=== PATIENT | female | born 1945 | race Caucasian/White ===

== ENCOUNTER 2025-05-01 06:56 | Day surgery (SDC) | payer OTHER ==
[~2025-05-01] VITALS: Ht 152.4 cm; Wt 59.0 kg
[2025-05-01] MEDS ORDERED: LIDOCAINE 2% 11 ML JELLY TP ONE (06:57)
[2025-05-01] MEDS ORDERED: LIDOCAINE 4% 50 ML SOLUTION TP ONE (06:57)
[2025-05-01] MEDS ORDERED: BENZOCAINE 20% 50 MCG/SPRAY 57 GM TP ONE (06:57)
[2025-05-01] MEDS ORDERED: ALBUTEROL SULFATE 2.5 MG/0.5 ML NEB SOLUTION NEB ONE (06:57)
[2025-05-01] MEDS ORDERED: FentaNYL CITRATE PF 100 MCG/2 ML VIAL ONE (07:57)
[2025-05-01] MEDS ORDERED: MIDAZOLAM HCL 2 MG/2 ML VIAL ONE (07:57)
[2025-05-01] MEDS ORDERED: MULT-660 PO (08:26)
[2025-05-01] MEDS ORDERED: EMPA25TA3 PO (08:26)
[2025-05-01] MEDS ORDERED: METF-1211 PO (08:26)
[2025-05-01] MEDS ORDERED: METO25 PO (08:26)
[2025-05-01] MEDS ORDERED: ROSU20TA98 PO (08:26)
[2025-05-01] MEDS ORDERED: LISI-894 PO (08:26)
[2025-05-01] MEDS ORDERED: BRIM5DRO9 OU (08:26)
[2025-05-01] MEDS ORDERED: AMLO-257 PO (08:26)
[2025-05-01] MEDS ORDERED: DORZ10DR10 OU (08:26)
[2025-05-01] MEDS ORDERED: FAMO20 PO (08:26)
[2025-05-01] MEDS: SODIUM CHLORIDE 0.9% 1,000 ML IV ONE (08:37)
[2025-05-01 08:45] LABS: GLUCOMETER DEV NAME(LOC) SDS.; GLUCOSE,POINT OF CARE 150 MG/DL (70-110)
[2025-05-01 09:52] VITALS: PULSE 91; RESP 18; O2SAT 100
== END 2025-05-01 12:55 | disposition home or self-care (01) ==
LOC: SURGERY 06:56
PROVIDERS: ATTEND Internal Medicine Critical Care Medicine
DX: R05.3 Chronic cough (principal); J38.4 Edema of larynx; B37.0 Candidal stomatitis; Z79.899 Other long term (current) drug therapy; Z90.49 Acquired absence of other specified parts of digestive tract; I10 Essential (primary) hypertension; E11.9 Type 2 diabetes mellitus without complications; E78.00 Pure hypercholesterolemia, unspecified; Z98.890 Other specified postprocedural states
CPT/HCPCS: 31623; 82962; 87206; 87101; 87220; 87070; 88108; 31624; 71045; 87015; J3010; J2250; J2919; J7613; Z7610